=== PATIENT | male | born 1955 | race Asian ===

== ENCOUNTER 2021-02-15 05:22 | Day surgery (SDC) | payer OTHER ==
[2021-02-14 08:45] VITALS: BMI 23.4
[2021-02-15 11:13] VITALS: TEMP 96.8
[2021-02-15 11:59] VITALS: BP 136/66; PULSE 74
== END 2021-02-15 12:09 | disposition home or self-care (01) ==
LOC: JASU-ENDO 05:22
PROVIDERS: ATTEND Internal Medicine Gastroenterology
PROC: 0DJD8ZZ Inspection of Lower Intestinal Tract, Via Natural or Artificial Opening Endoscopic (ICD-10-PCS; principal; 2021-02-15 10:49)
DX: Z12.11 Encounter for screening for malignant neoplasm of colon (principal); K57.30 Diverticulosis of large intestine without perforation or abscess without bleeding; K64.8 Other hemorrhoids

== ENCOUNTER 2022-06-22 22:24 | Emergency (ER) | payer OTHER ==
[2022-06-22 22:31] VITALS: BP 145/72; PULSE 88; RESP 20; TEMP 97.6; BMI 23.1
[2022-06-22] MEDS ORDERED: ACETAMINOPHEN 500 MG TABLET (FP) PO ONE (23:24)
[2022-06-22] MEDS ORDERED: DIPHTH,PERTUSS(ACELL),TET 0.5 ML DISP.SYRIN IM ONE (23:25)
[2022-06-23] MEDS ORDERED: DIPHTH,PERTUSS(ACELL),TET 0.5 ML DISP.SYRIN IM ONE ×2 (01:23→01:30)
[2022-06-23] MEDS ORDERED: ACETAMINOPHEN 325 MG TABLET (FP) ONE (01:31)
== END 2022-06-23 01:54 | disposition home or self-care (01) ==
LOC: JER 22:24
PROC: 3E0234Z Introduction of Serum, Toxoid and Vaccine into Muscle, Percutaneous Approach (ICD-10-PCS; principal; 2022-06-22)
DX: S61.214A Laceration without foreign body of right ring finger without damage to nail, initial encounter (principal); W26.0XXA Contact with knife, initial encounter
CPT/HCPCS: 73140-TC-RT-FY; 90471; 90715; 99284-25